=== PATIENT | male | born 1980 | race Caucasian/White ===

== ENCOUNTER 2024-02-28 21:22 | Emergency (ER) | payer OTHER ==
[~2024-02-28] VITALS: Ht 185.4 cm; Wt 97.5 kg
== END 2024-02-28 22:36 | disposition home or self-care (01) ==
LOC: ER 21:22
DX: F32.A Depression, unspecified (principal); I10 Essential (primary) hypertension; Z88.8 Allergy status to other drugs, medicaments and biological substances
CPT/HCPCS: 99285